=== PATIENT | female | born 1970 | race Caucasian/White ===

== ENCOUNTER → 2018-04-11 | Outpatient (CLI) | payer OTHER ==
[~2018-04-11] MED LIST: GADOBUTROL 10 ML VIAL IVP ONE
== END ==
LOC: FIMAGING 09:27
PROVIDERS: ATTEND Physician Assistant Medical
DX: G43.719 Chronic migraine without aura, intractable, without status migrainosus (principal); H93.13 Tinnitus, bilateral
CPT/HCPCS: A9585

== ENCOUNTER → 2018-04-12 | Outpatient (CLI) | payer OTHER | LOC: SBRMNEURO 23:00 | PROVIDERS: ATTEND Psychiatry & Neurology Sleep Medicine | DX: G47.33 Obstructive sleep apnea (adult) (pediatric) (principal) ==